=== PATIENT | male | born 1995 | race Caucasian/White ===

== ENCOUNTER 2017-10-05 03:15 | Emergency (ER) | payer OTHER ==
[2017-10-05] MEDS: MAGNESIUM CITRATE 300 ML BTL PO (06:20)
== END 2017-10-05 06:29 | disposition home or self-care (01) ==
LOC: M ED 03:15
DX: K59.00 Constipation, unspecified (principal); F17.200 Nicotine dependence, unspecified, uncomplicated; Z79.899 Other long term (current) drug therapy
CPT/HCPCS: 74021